=== PATIENT | male | born 1955 | race Caucasian/White ===

== ENCOUNTER 2022-04-17 11:33 | Day surgery (SDC) | payer OTHER ==
[2022-04-12 14:43] LABS: BASOPHILS ABSOLUTE AUTO 0.04 K/mm3 (0.00-0.23); BASOPHILS PERCENT AUTO 0 % (0-2); EOSINOPHILS ABSOLUTE AUTO 0.44 K/mm3 (0.00-0.68); EOSINOPHILS PERCENT AUTO 5 % (0-6); Hematocrit 39.7 % (37.0-53.0); Hemoglobin 13.2 g/dL (13.5-17.5); IMMATURE GRAN ABSOLUTE AUTO 0.04 K/mm3 (0.00-0.10); IMMATURE GRAN PERCENT AUTO 0 % (0-1); LYMPHOCYTES ABSOLUTE AUTO 2.08 K/mm3 (0.84-5.20); LYMPHOCYTES PERCENT AUTO 23 % (21-46); MONOCYTES ABSOLUTE AUTO 1.14 K/mm3 (0.16-1.47); MONOCYTES PERCENT AUTO 13 % (4-13); Mean Corpuscular HGB 30.2 pg (26.0-34.0); Mean Corpuscular HGB Conc 33.2 g/dL (31.5-36.5); Mean Corpuscular Volume 91 fL (80-100); Mean Platelet Volume 8.2 fL (9.1-12.4); NEUTROPHILS ABSOLUTE AUTO 5.23 K/mm3 (1.96-9.15); NEUTROPHILS PERCENT AUTO 58 % (41-73); Platelet Count 341 K/mm3 (150-400); RDW Coefficient Variation 13.2 % (11.7-14.2); RDW Standard Deviation 43.8 fL (35.1-46.3); Red Blood Cell Count 4.37 M/mm3 (4.30-5.90); White Blood Cell Count 8.97 K/mm3 (4.00-11.30)
[2022-04-12 16:26] LABS: Bun/Creatinine Ratio 17.5 (12.0-20.0); Creatinine, Blood 0.74 mg/dL (0.60-1.20); Potassium, Blood 4.3 mmol/L (3.5-5.5)
[~2022-04-17] VITALS: Ht 190.5 cm; Wt 96.5 kg
[2022-04-17] MEDS ORDERED: LEVOTHYROXINE75 MC8 PO (11:58)
--- NOTE | 2022-04-17 12:49 | NUR ---
04/17/22 1249 Lupe Vogt PT NERVOUS, PER DR. CRANDALL VERSED. CIRCULATING NURSE JAR PROVIDED.
--- NOTE | 2022-04-17 13:19 | NUR ---
04/17/22 1319 Kassandra Warren A PILLOW UNDER HEAD, LEFT ARM SECURED ON PADDED ARM BOARD.
--- NOTE | 2022-04-17 14:49 | NUR ---
04/17/22 1449 Yudy Gillis PT IN RECLINER. TOLERATION COOKIES AND APPLE JUICE WITHOUT ANY NAUSEA.C/O 03/26 PAIN TO R HAND. [facility] FOR PAIN MEDICATION FROM DR. EDWARDS. TRAMADOL 50MG PO X1 GIVEN NOW. PT ADVISED TO FOLLOW DIRECTIONS ON RX THAT HE PICKS UP FROM THE [facility] AND NOT TO TAKE NEXT DOSE OF TRAMADOL UNTIL APPROPRIATE AMOUNT OF TIME HAS PASSED. HE VERBALIZED UNDERSTANDING.
== END 2022-04-17 15:00 | disposition home or self-care (01) ==
LOC: ORSCSDS 11:33
PROVIDERS: Orthopaedic Surgery
PROC: 0LN70ZZ Release Right Hand Tendon, Open Approach (ICD-10-PCS; principal; 2022-04-17 13:00)
PROC: 0JNJ0ZZ Release Right Hand Subcutaneous Tissue and Fascia, Open Approach (ICD-10-PCS; principal; 2022-04-17 13:00)
DX: M72.0 Palmar fascial fibromatosis [Dupuytren] (principal); M65.311 Trigger thumb, right thumb; Z87.891 Personal history of nicotine dependence; J45.909 Unspecified asthma, uncomplicated; F41.8 Other specified anxiety disorders; F25.9 Schizoaffective disorder, unspecified; Z79.899 Other long term (current) drug therapy
CPT/HCPCS: 36415; 80048; 85025; A9270; J0690; J1100; J1885; J2250; J2405; J2704; J2795; J3010; J7120